=== PATIENT | female | born 1960 | race Caucasian/White ===

== ENCOUNTER 2020-06-15 15:45 | Emergency (ER) | payer OTHER ==
[~2020-06-15 15:45] MED LIST: ANTIVERT 25MG T25 MG PO; IBUPROFEN600 MG PO; ZOFRAN4 MG PO
[2020-06-15 18:02] LABS: HEMOGLOBIN 11.7 gm/dl (12.3-15.3); RED BLOOD COUNT 3.7 M/UL (4.00-5.10)
[2020-06-15] MEDS ORDERED: OMNICEF 300 MG300 MG PO (18:14)
== END 2020-06-15 19:00 | disposition home or self-care (01) ==
LOC: ER1 15:45
PROVIDERS: Emergency Medicine
DX: N39.0 Urinary tract infection, site not specified (principal); I10 Essential (primary) hypertension; J44.9 Chronic obstructive pulmonary disease, unspecified; E11.9 Type 2 diabetes mellitus without complications; Z88.0 Allergy status to penicillin; Z88.8 Allergy status to other drugs, medicaments and biological substances
CPT/HCPCS: 80053; 81001; 85025; 87077; 87086; 87186; 96365; 99283; J0696